=== PATIENT | female | born 1960 | race Caucasian/White ===

== ENCOUNTER 2019-08-25 09:01 | Outpatient (CLI) | payer BC, SELFPAY ==
--- NOTE | ~2019-08-25 | MM_ITS ---
EXAMINATION: MM screening [facility] BI w shemar HISTORY: Screening mammogram TECHNIQUE: Craniocaudal and mediolateral oblique 3-D tomosynthesis images were obtained and synthetic 2-D images were generated. CAD analysis was submitted and interpreted. COMPARISON: 07/16/2018, 07/09/2017, 07/07/2016 BREAST PARENCHYMAL COMPOSITION: There are scattered areas of fibroglandular density. FINDINGS: There is no evidence of suspicious mass, calcification, or architectural distortion to sugg est malignancy in either breast. There has been no suspicious interval change. IMPRESSION: 1. No mammographic evidence of malignancy. 2. Recommend routine screening mammography in one year. BI-RADS Category 1: Negative Reviewed, dictated and finalized at location A.
== END 2019-08-25 09:02 | disposition home or self-care (01) ==
LOC: ANHIMG 09:05
PROVIDERS: PCP Nurse Practitioner Adult Health; Visit Provider Nurse Practitioner Adult Health
DX: Z12.31 Encounter for screening mammogram for malignant neoplasm of breast (principal)
CPT/HCPCS: 77063; 77067

== ENCOUNTER 2020-08-28 08:58 | Outpatient (CLI) | payer BC, SELFPAY ==
--- NOTE | ~2020-08-28 | MM_ITS ---
EXAMINATION: MM screening [facility] BI w shemar HISTORY: Screening mammogram TECHNIQUE: Craniocaudal and mediolateral oblique 3-D tomosynthesis images were obtained and synthetic 2-D images were generated. CAD analysis was submitted and interpreted. COMPARISON: 08/25/2019, 07/16/2018, 07/09/2017 BREAST PARENCHYMAL COMPOSITION: There are scattered areas of fibroglandular density. FINDINGS: There is no evidence of suspicious mass, calcification, or architectural distortion to sugg est malignancy in either breast. There has been no suspicious interval change. IMPRESSION: 1. No mammographic evidence of malignancy. 2. Recommend routine screening mammography in one year. BI-RADS Category 1: Negative Reviewed, dictated and finalized at location A.
== END 2020-08-28 08:59 | disposition home or self-care (01) ==
PROVIDERS: PCP Nurse Practitioner Adult Health; Visit Provider Nurse Practitioner Adult Health
DX: Z12.31 Encounter for screening mammogram for malignant neoplasm of breast (principal)
CPT/HCPCS: 77063; 77067

== ENCOUNTER 2021-12-31 14:26 | Outpatient (CLI) | payer BC, SELFPAY ==
--- NOTE | ~2021-12-31 | MM_ITS ---
EXAMINATION: MM screening [facility] BI w [facility] HISTORY: Screening TECHNIQUE: Craniocaudal and mediolateral oblique 3-D tomosynthesis images were obtained and synthetic 2-D images were generated. CAD analysis was submitted and interpreted. COMPARISON: Comparison to multiple prior studies sequentially, with oldest reviewed study dated 07/04. BREAST PARENCHYMAL COMPOSITION: There are scattered areas of fibroglandular density. FINDINGS: There is no evidence of suspicious mass, calcification, or architectural distortion to sugg est malignancy in either breast. There has been no suspicious interval change. IMPRESSION: 1. No mammographic evidence of malignancy. 2. Recommend routine screening mammography in one year. BI-RADS Category 1: Negative Reviewed, dictated and finalized at location A. 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
== END 2021-12-31 14:27 | disposition home or self-care (01) ==
PROVIDERS: PCP Nurse Practitioner Adult Health; Visit Provider Nurse Practitioner Adult Health
DX: Z12.31 Encounter for screening mammogram for malignant neoplasm of breast (principal)
CPT/HCPCS: 77063; 77067

== ENCOUNTER → 2022-12-11 08:43 | Outpatient (CLI) | payer BC, SELFPAY ==
--- NOTE | ~2022-12-11 | US_ITS ---
EXAMINATION: US carotid duplex BI DATE: 12/11/2022 09:06 INDICATION: Carotid bruit TECHNIQUE: Grayscale, color Doppler, and pulsed Doppler images of the cervical carotid arteries were obtained. The degree of vessel stenosis is placed in one of the following categories: normal, <50%, 5 0-69%, >=70% but less than near-occlusion, near-occlusion, or total occlusion. Note that percent sten osis relative to normal distal artery lumen diameter is indirectly measured from velocity measurement s as described by Duarte, et al. Radiology 2003; [id number]:340-346. Notes: Normal: Peak systolic velocity <125 centimeters/sec and no plaque <50%. Peak systolic velocity <125 ( EDV <40; ICA/CCA PSV ratio <2.0; used these factors only a tandem lesions or low cardiac output or co ntralateral disease) 50-69 %: PSV 125-230 (EDV 40-100; ratio 2-4) >= 70% but less than near occlusion: PSV greater than 230 (EDV > 100; ratio> 4.0) Near Occlusion: PSV that is variable; markedly narrowed lumen Occlusion: Absent flow on color/spectral Doppler and no lumen on leblanc scale. COMPARISON: None. FINDINGS: RIGHT: The right common carotid artery (CCA) peak systolic velocity (PSV) is 119 cm/s. The right internal ca rotid artery (ICA) PSV is 128 cm/s. The right ICA end-diastolic velocity (EDV) is 30 cm/s. The right ICA/CCA PSV ratio is 1.8. The external carotid artery (ECA) PSV is 155 cm/s. There is antegrade flow in the right vertebral artery. LEFT: The left CCA PSV is 128 cm/s. The left ICA PSV is 100 cm/s. The left ICA EDV is 30 cm/s. The left ICA /CCA PSV ratio is 1. The ECA PSV is 132 cm/s. There is antegrade flow in the left vertebral artery. IMPRESSION: 1. Less than 50% stenosis in the right internal carotid artery by sonographic criteria. 2. Less than 50% stenosis in the left internal carotid artery by sonographic criteria. Reviewed, dictated and finalized at location L. IMPRESSION: 1. Less than 50% stenosis in the right internal carotid artery by sonographic jerry boo. 2. Less than 50% stenosis in the left internal carotid artery by sonographic jaxon howard.
== END ==
PROVIDERS: PCP Family Medicine; Visit Provider Family Medicine
DX: I65.23 Occlusion and stenosis of bilateral carotid arteries (principal)
CPT/HCPCS: 93880

== ENCOUNTER 2023-01-02 09:00 | Outpatient (CLI) | payer BC, SELFPAY ==
--- NOTE | ~2023-01-02 | MM_ITS ---
EXAMINATION: MM screening [facility] BI w shemar HISTORY: Screening mammogram TECHNIQUE: Craniocaudal and mediolateral oblique 3-D tomosynthesis images were obtained and synthetic 2-D images were generated. CAD analysis was submitted and interpreted. COMPARISON: 12/29/2021, 08/28/2020, 08/25/2019, 07/16/2018 BREAST PARENCHYMAL COMPOSITION: There are scattered areas of fibroglandular density. FINDINGS: No suspicious mass, calcification, or architectural distortion are identified in either jorge ast to suggest malignancy. There has been no suspicious interval change. IMPRESSION: 1. No mammographic evidence of malignancy. 2. Recommend routine screening mammography in one year. BI-RADS Category 1: Negative Reviewed, dictated and finalized at location A. 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
== END 2023-01-02 09:01 | disposition home or self-care (01) ==
PROVIDERS: PCP Family Medicine; Visit Provider Family Medicine
DX: Z12.31 Encounter for screening mammogram for malignant neoplasm of breast (principal)
CPT/HCPCS: 77063; 77067

== ENCOUNTER 2023-11-18 12:27 | Outpatient (CLI) | payer MEDICARE, SELFPAY ==
--- NOTE | ~2023-11-18 | US_ITS ---
EXAMINATION: US carotid duplex BI DATE: 11/18/2023 13:40 INDICATION: Unspecified atherosclerosis TECHNIQUE: Grayscale, color Doppler, and pulsed Doppler images of the cervical carotid arteries were obtained. The degree of vessel stenosis is placed in one of the following categories: normal, <50%, 5 0-69%, >=70% but less than near-occlusion, near-occlusion, or total occlusion. Note that percent sten osis relative to normal distal artery lumen diameter is indirectly measured from velocity measurement s as described by Duarte, et al. Radiology 2003; [id number]. COMPARISON: None. FINDINGS: RIGHT: The right common carotid artery (CCA) peak systolic velocity (PSV) is 109 cm/s. The right internal ca rotid artery (ICA) PSV is 97 cm/s. The right ICA end-diastolic velocity (EDV) is 25 cm/s. The right I CA/CCA PSV ratio is 0.9. Grayscale and color Doppler images yield an estimate of <50% diameter reduct ion from plaque in the ICA. The external carotid artery (ECA) PSV is 129 cm/s. There is antegrade jame w in the right vertebral artery. LEFT: The left CCA PSV is 126 cm/s. The left ICA PSV is 86 cm/s. The left ICA EDV is 25 cm/s. The left ICA/ CCA PSV ratio is 0.7. Grayscale and color Doppler images yield an estimate of <50% diameter reduction from plaque in the ICA. The ECA PSV is 132 cm/s. There is antegrade flow in the left vertebral arter y. IMPRESSION: 1. <50% stenosis in the right internal carotid artery. 2. <50% stenosis in the left internal carotid artery. Reviewed, dictated and finalized at location A.
--- NOTE | ~2023-11-18 | US_ITS ---
EXAMINATION: US thyroid DATE: 11/18/2023 13:41 INDICATION: Disorder of thyroid, unspecified. TECHNIQUE: Multiple ultrasound images of the thyroid were obtained. COMPARISON: Ultrasound 06/17/2016 FINDINGS: The right thyroid lobe measures 4.0 x 2.0 x 2.1 cm. The left thyroid lobe measures 3.9 x 1.4 x 1.5 c m. In the left thyroid lobe, there is a 4 mm nodule. In the right thyroid lobe, there is a 12 mm mix ed cystic and solid, isoechoic, wider than tall nodule with ill-defined margin without echogenic foci (TI-RADS TR2). IMPRESSION: 1. Thyroid nodules, likely not clinically significant. No follow-up is needed. Reviewed, dictated and finalized at location A.
== END 2023-11-18 12:28 | disposition home or self-care (01) ==
LOC: ANHIMG 12:33
PROVIDERS: PCP Nurse Practitioner Adult Health; Visit Provider Nurse Practitioner Adult Health
DX: I70.90 Unspecified atherosclerosis (principal); R09.89 Other specified symptoms and signs involving the circulatory and respiratory systems; E07.9 Disorder of thyroid, unspecified; E04.2 Nontoxic multinodular goiter; I65.23 Occlusion and stenosis of bilateral carotid arteries
CPT/HCPCS: 76536; 93880

== ENCOUNTER 2024-11-17 10:26 | Outpatient (CLI) | payer MEDICARE, SELFPAY ==
--- NOTE | ~2024-11-17 | US_ITS ---
EXAMINATION: US carotid duplex BI DATE: 11/17/2024 16:48 INDICATION: Left carotid bruit TECHNIQUE: Grayscale, color Doppler, and pulsed Doppler images of the cervical carotid arteries were obtained. The degree of vessel stenosis is placed in one of the following categories: normal, <50%, 50-69%, >=70% but less than near- occlusion, near-occlusion, or total occlusion. Note that percent stenosis relative to normal distal artery lumen diameter is indirectly measured from velocity measurements as described by Duarte, et al. Radiology 2003; 229:340-346. COMPARISON: None. FINDINGS: RIGHT: The right common carotid artery (CCA) peak systolic velocity (PSV) is 147 cm/s. The right internal carotid artery (ICA) PSV is 142 cm/s. The right ICA end- diastolic velocity (EDV) is 30 cm/s. The right ICA/CCA PSV ratio is 1.0. Grayscale and color Doppler images yield an estimate of <50% diameter reduction from plaque in the ICA. The external carotid artery (ECA) PSV is 143 cm/s. There is antegrade flow in the right vertebral artery. LEFT: The left CCA PSV is 124 cm/s. The left ICA PSV is 118 cm/s. The left ICA EDV is 31 cm/s. The left ICA/CCA PSV ratio is 1.0. Grayscale and color Doppler images yield an estimate of <50% diameter reduction from plaque in the ICA. The ECA PSV is 156 cm/s. There is antegrade flow in the left vertebral artery. IMPRESSION: 1. 50-69% stenosis in the right internal carotid artery. 2. <50% stenosis in the left internal carotid artery. Reviewed, dictated and finalized at location A.
--- OUTSIDE RECORDS SUMMARY | 2024-11-17 16:16 | XMS_ITS | Data Portability ---
Author Organization [place] [facility] [employer], Main Office Address [address] [place] [address] Assessment No assessment recorded. Plan of Treatment Reminders Order Date Submit Date Provider Last Modified By Organization Details Last Modified Time Details Appointments None recorded. Lab pap, IG + reflex HPV (16+18+45) 2022 023 LAQUITA Not available 02:17:36 lipid panel, serum 2022 023 [email or web address] [facility], [address], [address], [place], [address], 11:43:01 CMP, serum or plasma 2022 023 [facility], [address], [place], [address], 11:43:02 Referral None recorded. Procedures None recorded. Surgeries None recorded. Imaging MAMMO, screening, bilateral 2022 023 [email or web address] [id number] [facility], 2022 Alise [address], [address], [place], [address], 09:20:43 [facility], duplex, [facility] [address], [address], [place], [address], 10:18:47 Medication Orders None recorded. Patient TargetsNo targets recorded. Patient InstructionsNo instructions recorded. Reason for Referral None Reported. Results Created Date Observation Date Name Description Value Unit Range Abnormal Flag Note LastModifiedBy Organization Detail LastModifiedTime 11/07/19 22 11/06/2021 AMBIG ABBRE V HFP7 DEFAU LT ambig abbrev hfp7 default commen t A hand- writt en panel /prof ile was recei natasha from your offic e. In accor dance with the [facility] Ambig uous Test Code Polic y dated August 2002, we have compl eted your order by using the close st curre ntly or forme rly recog nized AMA panel . We have selin walsh Hepat ic Funct ion Panel (7), Test Code #32[address]. If this is not the testi ng you wishe d to recei ve on this speci men, pleas e conta ct the [facility] Clien t Inqui ry/Te chnic al Servi paulina Depar tment to tonya fy the test order . We appre ciate your busin ess. Not Available [facility] ([facility]) [address] [facility], [place], [address], 11/07/2021 08:20:55 11/07/19 22 11/06/2021 AMBIG ABBRE V LP DEFAU LT ambig abbrev LP default commen t A hand- writt en panel /prof ile was recei natasha from your offic e. In accor dance with the [facility] Ambig uous Test Code Polic y dated August 2002, we have compl eted your order by using the close st curre ntly or forme rly recog nized AMA panel . We have selin walsh Lipid Panel , Test Code #30[address]. If this is not the testi ng you wishe d to recei ve on this speci men, pleas e conta ct the [facility] Clien t Inqui ry/Te chnic al Servi paulina Depar tment to tonya fy the test order . We appre ciate your busin ess. Not Available [facility] ([facility]) [address] [facility], [place], [address], 11/07/2021 08:20:54 11/07/19 22 11/06/2021 AMBIG ABBRE V BMP8 DEFAU LT ambig abbrev BMP8 default commen t A hand- writt en panel /prof stewart was recei natasha from your offic e. In accor dance with the [facility] Wendy bullardous Test Code Polic y dated August 2002, we have compl eted your order by using the close st curre ntly or forme rly recog nized AMA panel . We have assdrarius walsh Basic Metab olic Panel (8), Test Code #32[address]. If this is not the testi ng you wishe d to recei ve on this speci men, pleas e conta ct the [facility] Clien t Inqui ry/Te chnic al Servi paulina Depar tment to tonya fy the test order . We appre ciate your busin ess. Not Available [facility] ([facility]) [address] [place], [address], 11/07/2021 08:20:54 11/07/19 22 11/07/2021 TSH TSH 1.390 uIU/m L 0.450- 4.500 Not Available [facility] ([facility]) [address] [place], [address], 11/07/2021 08:20:53 11/07/19 22 11/07/2021 HEPAT IC FUNCT ION PANEL (7) protein, total 7.4 g/dL 6.0-8. 5 Not Available [facility] ([facility]) [address] [place], [address], 11/07/2021 08:20:52 11/07/19 22 11/07/2021 HEPAT IC FUNCT ION PANEL (7) albumin 4.9 g/dL 3.8-4. 8 above high normal Not Available [facility] ([facility]) [address] [place], [address], 11/07/2021 08:20:52 11/07/1911/07/2021 HEPAT IC FUNCT ION PANEL (7) bilirubin, total 0.6 mg/dL 0.0-1. 2 Not Available [facility] ([facility]) [address] [place], [address], 11/07/2021 08:20:52 11/07/19 22 11/07/2021 HEPAT IC FUNCT ION PANEL (7) bilirubin, direct 0.12 mg/dL 0.00-0 .40 Not Available [facility] ([facility]) [address] [place], [address], 11/07/2021 08:20:52 11/07/19 22 11/07/2021 HEPAT IC FUNCT ION PANEL (7) alkaline phosphatase 79 IU/L 44-121 Not Available [facility] ([facility]) [address] [place], [address], 11/07/2021 08:20:52 11/07/19 22 11/07/2021 HEPAT IC FUNCT ION PANEL (7) AST (SGOT) 26 IU/L 0-40 Not Available [facility] ([facility]) [address] [place], [address], 11/07/2021 08:20:52 11/07/19 22 11/07/2021 HEPAT IC FUNCT ION PANEL (7) ALT (SGPT) 15 IU/L 0-32 Not Available [facility] ([facility]) [address] [place], [address], 11/07/2021 08:20:52 11/07/19 22 11/07/2021 LIPID PANEL cholesterol, total 233 mg/dL 100-19 9 above high normal Not Available [facility] ([facility]) [address] [place], [address], 11/07/2021 08:20:51 11/07/19 22 11/07/2021 LIPID PANEL triglyceride s 198 mg/dL 0-149 above high normal Not Available [facility] ([facility]) [address] [place] [place], [address], 11/07/2021 08:20:51 11/07/19 22 11/07/2021 LIPID PANEL HDL cholesterol 39 mg/dL >39 below low normal Not Available [facility] ([facility]) [address] [place] [place], [address], 11/07/2021 08:20:51 11/07/19 22 11/07/2021 LIPID PANEL VLDL cholesterol jensen 36 mg/dL 5-40 Not Available [facility] ([facility]) [address] [place], [address], 11/07/2021 08:20:51 11/07/19 22 11/07/2021 LIPID PANEL LDL chol calc ([facility]) 158 mg/dL 0-99 above high normal Not Available [facility] ([facility]) [address] [place], [address], 11/07/2021 08:20:51 11/07/19 22 11/07/2021 LIPID PANEL comment: psych arnp Not Available [facility] ([facility]) [address] [place], [address], 11/07/2021 08:20:51 11/07/19 22 11/07/2021 BASIC METAB OLIC PANEL (8) glucose 81 mg/dL 65-99 Eff ectiv e Septe mber 2021 Gluco se refer ence* * inter edelmira will be corona ing to: 70 - 99 Not Available [facility] ([facility]) [address] [place], [address], 11/07/2021 08:20:50 11/07/19 22 11/07/2021 BASIC METAB OLIC PANEL (8) BUN 16 mg/dL 8-27 Not Available [facility] ([facility]) [address] [place], [address], 11/07/2021 08:20:50 11/07/19 22 11/07/2021 BASIC METAB OLIC PANEL (8) creatinine 0.90 mg/dL 0.57-1 .00 Not Available [facility] ([facility]) [address] [place], [address], 11/07/2021 08:20:50 11/07/19 22 11/07/2021 BASIC METAB OLIC PANEL (8) eGFR 72 mL/mi n/1.7 3 >59 Not Available [facility] ([facility]) [address] [place], [address], 11/07/2021 08:20:50 11/07/19 22 11/07/2021 BASIC METAB OLIC PANEL (8) BUN/creatini ne ratio 18 12-28 Not Available [facility] ([facility]) [address] [place], [address], 11/07/2021 08:20:50 11/07/19 22 11/07/2021 BASIC METAB OLIC PANEL (8) sodium 138 mmol/ L 134-14 4 Not Available [facility] ([facility]) [address] [place], [address], 11/07/2021 08:20:50 11/07/19 22 11/07/2021 BASIC METAB OLIC PANEL (8) potassium 4.7 mmol/ L 3.5-5. 2 Not Available [facility] ([facility]) [address] [place], [address], 11/07/2021 08:20:50 11/07/19 22 11/07/2021 BASIC METAB OLIC PANEL (8) chloride 97 mmol/ L 96-106 Not Available [facility] ([facility]) [address] [place], [address], 11/07/2021 08:20:50 11/07/19 22 11/07/2021 BASIC METAB OLIC PANEL (8) carbon dioxide, total 21 mmol/ L 20-29 Not Available [facility] ([facility]) [address] [facility], [place], [address], 11/07/2021 08:20:50 11/07/1911/07/2021 BASIC METAB OLIC PANEL (8) calcium 9.7 mg/dL 8.7-10 .3 Not Available [facility] ([facility]) [address] [facility], [place], [address], 11/07/2021 08:20:50 12/09/1912/14/2022 PAP THINP REP W/HPV ,RF 16/18 /45 diagnosis: Orlando FRITZ FOR INTRA EPITH ELIAL LESIO N OR MIGUEL BHAKTA . CELLU MICHEAL CORONA ES ASSOC IATED WITH INFLA MMATI ON ARE PRESE NT. THIS SPECI MEN WAS RESCR EENED PART OF OUR QUALI TY CONTR OL PROGR AM. Not Available [facility] (Lab) [address] [place], [address], 12/14/2022 11:09:40 12/09/1912/14/2022 PAP THINP REP W/HPV ,RF 16/18 /45 specimen adequacy: Orlando Caban Satis mandy mcdonough for evalu ation . Endoc ervic al and/o r squam ous m etapl astic cells (endo cervi jensen compo nent) are prese nt. Not Available [facility] (Lab) [address] [place], [address], 12/14/2022 11:09:40 12/09/1912/14/2022 PAP THINP REP W/HPV ,RF 16/18 /45 performed by: Valeriano Damico (ASCP ) Not Available [facility] (Lab) [address] [place], [address], 12/14/2022 11:09:40 12/09/1912/14/2022 PAP THINP REP W/HPV ,RF 16/18 /45 QC reviewed by: Orlando Coppola , Cytot delaney trammell Not Available [facility] (Lab) [address] [place], [address], 12/14/2022 11:09:40 12/09/1912/14/2022 PAP THINP REP W/HPV ,RF 16/18 /45 . . Not Available [facility] (Lab) [address] [place], [address], 12/14/2022 11:09:40 12/09/1912/14/2022 PAP THINP REP W/HPV ,RF 16/18 /45 note: Orlando trammell The Pap smear is a scree ludmila test desig jillian to aid in the detec tion of vikas ligna nt and malig nant condi tions of the uteri ne cervi x. It is not a diagn ostic proce dure and shoul d not be used as the sole means of detec ting cervi jensen cance r. Both false -posi tive and false -nega tive repor ts do occur . . Not Available [facility] (Lab) [address] [place], [address], 12/14/2022 11:09:40 12/09/1912/14/2022 PAP THINP REP W/HPV ,RF 16/18 /45 test methodology: Orlando trammell This liqui d based ThinP rep(R ) pap test was scree jillian with the use of an image guide d syste m. Not Available [facility] (Lab) [address] [place], [address], 12/14/2022 11:09:40 12/09/1912/14/2022 PAP THINP REP W/HPV ,RF 16/18 /45 aptima HPV, reflex Orlando trammell This nucle ic acid ampli ficat ion test detec ts fourt een high- risk HPV types (16,1 8,31, 33,35 ,39,4 5,51, 52,56 ,58,5 9,66, 68) witho ut diffe renti ation . Crite yfn not met, HPV Genot ype not perfo rmed. Perfo rmed at: [facility] [place] [address] , [place] [id number] Lab Direc tor: Jv friedman MD, Phone : [phone] Perfo rmed at: =[facility] - [facility] [place] [address] , [place] [id number] Lab Direc tor: Jv friedman MD, Phone : [phone] Not Available [facility] (Lab) [address] [place], [address], 12/14/2022 11:09:40 01/02/20 23 01/02/2023 COMP. METAB OLIC PANEL (14) glucose 85 mg/dL 70-99 Not Available [facility] ([facility]) [address] [place], [address], 01/02/2023 03:08:09 01/02/20 23 01/02/2023 COMP. METAB OLIC PANEL (14) BUN 7 mg/dL 8-27 below low normal Not Available [facility] ([facility]) [address] [place], [address], 01/02/2023 03:08:09 01/02/20 23 01/02/2023 COMP. METAB OLIC PANEL (14) creatinine 0.83 mg/dL 0.57-1 .00 Not Available [facility] ([facility]) [address] [place], [address], 01/02/2023 03:08:09 01/02/20 23 01/02/2023 COMP. METAB OLIC PANEL (14) eGFR 79 mL/mi n/1.7 3 >59 Not Available [facility] ([facility]) [address] [place], [address], 01/02/2023 03:08:09 01/02/20 23 01/02/2023 COMP. METAB OLIC PANEL (14) BUN/creatini ne ratio 8 12-28 below low normal Not Available [facility] ([facility]) [address] [place], [address], 01/02/2023 03:08:09 01/02/20 23 01/02/2023 COMP. METAB OLIC PANEL (14) sodium 134 mmol/ L 134-14 4 Not Available [facility] ([facility]) [address] [place] [place], [address], 01/02/2023 03:08:09 01/02/20 23 01/02/2023 COMP. METAB OLIC PANEL (14) potassium 4.4 mmol/ L 3.5-5. 2 Not Available [facility] ([facility]) [address] [place], [address], 01/02/2023 03:08:09 01/02/20 23 01/02/2023 COMP. METAB OLIC PANEL (14) chloride 93 mmol/ L 96-106 below low normal Not Available [facility] ([facility]) [address] [place], [address], 01/02/2023 03:08:09 01/02/20 23 01/02/2023 COMP. METAB OLIC PANEL (14) carbon dioxide, total 24 mmol/ L 20-29 Not Available [facility] ([facility]) [address] [place], [address], 01/02/2023 03:08:09 01/02/20 23 01/02/2023 COMP. METAB OLIC PANEL (14) calcium 9.6 mg/dL 8.7-10 .3 Not Available [facility] ([facility]) [address] [place], [address], 01/02/2023 03:08:09 01/02/20 23 01/02/2023 COMP. METAB OLIC PANEL (14) protein, total 7.2 g/dL 6.0-8. 5 Not Available [facility] ([facility]) [address] [place], [address], 01/02/2023 03:08:09 01/02/20 23 01/02/2023 COMP. METAB OLIC PANEL (14) albumin 4.8 g/dL 3.9-4. 9 Not Available [facility] ([facility]) [address] [place], [address], 01/02/2023 03:08:09 01/02/20 23 01/02/2023 COMP. METAB OLIC PANEL (14) globulin, total 2.4 g/dL 1.5-4. 5 Not Available [facility] ([facility]) [address], [place], [address], 01/02/2023 03:08:09 01/02/20 23 01/02/2023 COMP. METAB OLIC PANEL (14) A/G ratio 2.0 1.2-2. 2 Not Available [facility] ([facility]) [address] [place], [address], 01/02/2023 03:08:09 01/02/20 23 01/02/2023 COMP. METAB OLIC PANEL (14) bilirubin, total 0.6 mg/dL 0.0-1. 2 Not Available [facility] ([facility]) [address] [place], [address], 01/02/2023 03:08:09 01/02/20 23 01/02/2023 COMP. METAB OLIC PANEL (14) alkaline phosphatase 83 IU/L 44-121 Not Available [facility] ([facility]) [address] [place], [address], 01/02/2023 03:08:09 01/02/20 23 01/02/2023 COMP. METAB OLIC PANEL (14) AST (SGOT) 25 IU/L 0-40 Not Available [facility] ([facility]) [address] [facility], [place], [address], 01/02/2023 03:08:09 01/02/20 23 01/02/2023 COMP. METAB OLIC PANEL (14) ALT (SGPT) 14 IU/L 0-32 Not Available [facility] ([facility]) [address] [facility], [place], [address], 01/02/2023 03:08:09 01/02/20 23 01/02/2023 LIPID PANEL cholesterol, total 177 mg/dL 100-19 9 Not Available [facility] ([facility]) [address] [facility], [place], [address], 01/02/2023 03:08:10 01/02/20 23 01/02/2023 LIPID PANEL triglyceride s 99 mg/dL 0-149 Not Available [facility] ([facility]) [address] [place], [address], 01/02/2023 03:08:10 01/02/20 23 01/02/2023 LIPID PANEL HDL cholesterol 48 mg/dL >39 Not Available [facility] ([facility]) [address] [facility], [place], [address], 01/02/2023 03:08:10 01/02/20 23 01/02/2023 LIPID PANEL VLDL cholesterol jensen 18 mg/dL 5-40 Not Available [facility] ([facility]) [address] [place], [address], 01/02/2023 03:08:10 01/02/20 23 01/02/2023 LIPID PANEL LDL chol calc ([facility]) 111 mg/dL 0-99 above high normal Not Available [facility] ([facility]) [address] [place], [address], 01/02/2023 03:08:10 01/02/20 23 01/02/2023 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 Not Available [facility] ([facility]) [address], [place], [address], 01/02/2023 03:08:10 01/30/20 23 01/30/2023 COMPR EHENS LAM METAB OLIC PANEL glucose 73 mg/dL 65-139 normal Non-f astin g refer ence inter edelmira Not Available [address] [address] [place], [address], 01/30/2023 04:26:26 01/30/20 23 01/30/2023 COMPR EHENS LAM METAB OLIC PANEL urea nitrogen (BUN) 11 mg/dL 7-25 normal Not Available [address], [address], 01/30/2023 04:26:26 01/30/20 23 01/30/2023 COMPR EHENS LAM METAB OLIC PANEL creatinine 0.78 mg/dL 0.50-1 .05 normal Not Available [address] [address] [place], [address], 01/30/2023 04:26:26 01/30/20 23 01/30/2023 COMPR EHENS LAM METAB OLIC PANEL eGFR 85 mL/mi n/1.7 3m2 > or = 60 normal Not Available [address], [address], 01/30/2023 04:26:26 01/30/20 23 01/30/2023 COMPR EHENS LAM METAB OLIC PANEL BUN/creatini ne ratio SEE NOTE: (calc ) 6-22 Not Repor brinda: BUN and Creat inine are withi n refer ence range . Not Available [address], [address], 01/30/2023 04:26:26 01/30/20 23 01/30/2023 COMPR EHENS LAM METAB OLIC PANEL sodium 138 mmol/ L 135-14 6 normal Not Available [facility] - [address], [address], 01/30/2023 04:26:26 01/30/20 23 01/30/2023 COMPR EHENS LAM METAB OLIC PANEL potassium 4.2 mmol/ L 3.5-5. 3 normal Not Available [address], [address], 01/30/2023 04:26:26 01/30/20 23 01/30/2023 COMPR EHENS LAM METAB OLIC PANEL chloride 99 mmol/ L 98-110 normal Not Available [address], [address], 01/30/2023 04:26:26 01/30/20 23 01/30/2023 COMPR EHENS LAM METAB OLIC PANEL carbon dioxide 30 mmol/ L 20-32 normal Not Available [address], [address], 01/30/2023 04:26:26 01/30/20 23 01/30/2023 COMPR EHENS LAM METAB OLIC PANEL calcium 9.5 mg/dL 8.6-10 .4 normal Not Available [address], [address], 01/30/2023 04:26:26 01/30/20 23 01/30/2023 COMPR EHENS LAM METAB OLIC PANEL protein, total 7.0 g/dL 6.1-8. 1 normal Not Available [address], [address], 01/30/2023 04:26:26 01/30/20 23 01/30/2023 COMPR EHENS LAM METAB OLIC PANEL albumin 4.7 g/dL 3.6-5. 1 normal Not Available [address], [address], 01/30/2023 04:26:26 01/30/20 23 01/30/2023 COMPR EHENS LAM METAB OLIC PANEL globulin 2.3 g/dL_ (calc ) 1.9-3. 7 normal Not Available [address], [address], 01/30/2023 04:26:26 01/30/20 23 01/30/2023 COMPR EHENS LAM METAB OLIC PANEL albumin/glob ulin ratio 2.0 (calc ) 1.0-2. 5 normal Not Available [address], [address], 01/30/2023 04:26:26 01/30/20 23 01/30/2023 COMPR EHENS LAM METAB OLIC PANEL bilirubin, total 0.5 mg/dL 0.2-1. 2 normal Not Available [address], [address], 01/30/2023 04:26:26 01/30/20 23 01/30/2023 COMPR EHENS LAM METAB OLIC PANEL alkaline phosphatase 77 U/L 37-153 normal Not Available [address], [address], 01/30/2023 04:26:26 01/30/20 23 01/30/2023 COMPR EHENS LAM METAB OLIC PANEL AST 21 U/L 10-35 normal Not Available [address], [address], 01/30/2023 04:26:26 01/30/20 23 01/30/2023 COMPR EHENS LAM METAB OLIC PANEL ALT 15 U/L 6-29 normal Not Available [address], [address], 01/30/2023 04:26:26 01/01/20 22 12/31/2021 MAMMO , sarai keys, digit al, bilat eral No observ ation record ed. [id number] [place] [address] [address], [place], [address], 04/16/2022 07:36:47 01/02/20 22 12/31/2021 MAMMO , scree ludmila, digit al, bilat eral No observ ation record ed. [id number] [facility] [address] [facility] [address], [place], [address], 04/16/2022 07:36:47 12/12/19 23 12/11/2022 US, carlle x, carot id arter y No observ ation record ed. [email or web address] [place] [facility] [address] [facility] [address], [place], [address], 12/11/2022 12:55:29 01/03/20 23 01/02/2023 MAMMO , scree ludmila, bilat eral No observ ation record ed. [email or web address] [address], [place], [address], 01/05/2023 16:34:05 Result Notes None recorded. Problems Name Problem SNOMED Code Status Onset Date Resolution Date Notes Provider Name and Address Organization Details Recorded Time Acute sinusitis 83071891 Completed Not Available [facility] 3 07:31:27 Thyroid nodule 344083351 Active Not Available [facility] 3 07:31:27 Hypertrigl yceridemia 021797301 Active Not Available [facility] 3 07:31:27 Hypertensi ve disorder 82021611 Active Not Available [facility] 3 07:31:27 Hyperlipid emia 95804907 Active Not Available [facility] 3 07:31:27 Essential hypertensi on 32819821 Active Not Available [facility] 3 07:31:27 Posterior rhinorrhea 65844222 Active Not Available [facility] 3 07:31:27 Carotid bruit 834954004 Active 2022 Samna Landry MD [address] [place], [place] [address]idal[place], [facility] [address], [place], [address] , [facility] 3 11:11:47 [email or web address] 20575439 Active 2022 Jonny Pina RN null, [facility] 3 10:21:34 Problem Notes None recorded. Procedures Surgical History Date Name Laterality Status Provider Name and Address Organization Details Recorded Time Removal of ovarian cyst(s) completed Not Available [facility] 04/16/2022 07:26:55 Colonoscopy completed Not Available [facility] 04/16/2022 07:26:55 Imaging Results None recorded. Procedure Notes None recorded. Medical Equipment None Reported. Allergies No known drug allergies Medications Name Sig Start Date Stop Date Status Note LastModified by Organization Details LastModified Time Prescriptio n - Renewal active Not Available Not Available Not Available amoxicillin 875 mg tablet TAKE 1 TABLET BY MOUTH NOW THEN 1 TWICE DAILY UNTIL GONE 12/08 completed Not Available Not Available Not Available lisinopril 10 mg tablet Take 1 tablet by mouth once daily 2023 active Not Available Not Available Not Avai lable methylpredn isolone 4 mg tablets in a dose pack FOLLOW PACKAGE DIRECTION S 12/05 completed Not Available Not Available Not Available amoxicillin 875 mg-potassiu m clavulanate 125 mg tablet TAKE 1 TABLET BY MOUTH NOW AND 1 TWICE DAILY UNTIL GONE 11/01 completed Not Available Not Available Not Available ezetimibe 10 mg tablet TAKE 1 TABLET BY MOUTH ONCE DAILY 2023 active Not Available Not Available Not Avai lable Boostrix Tdap 2.5 Lf unit-8 mcg-5 Lf/0.5 mL intramuscul ar syringe ADM 0.5ML IM UTD 11/01 completed Not Available Not Available Not Available Livalo 2 mg tablet Take 1 tablet every day by oral route for 30 days. 01/28 completed Not Available Not Available Not Available Vascepa 1 gram capsule Take 2 capsules twice a day by oral route as directed for 30 days. 11/01 completed Not Available Not Available Not Available Fluvirin 6133-2954 45 mcg (15 mcg x 3)/0.5 mL intramuscul ar suspension active Not Available Not Available N ot Available Fluvirin (P F) 45 mcg (15 mcg x3)/0.5 mL intramuscul ar syringe 01/04 completed Not Available Not Available Not Available Afluria 8813-6699 (PF) 45 mcg (15 mcg x 3)/0.5 mL IM syringe active Not Available Not Available N ot Available Fluvirin 9790-5218 45 mcg (15 mcg x 3)/0.5 mL intramuscul ar suspension ADM 0.5ML IM UTD active Not Available Not Available No t Available Fluvirin (PF) 45 mcg(15 mcg x3)/0.5 mL intramuscul ar syringe ADM 0.5ML IM UTD 11/01 completed Not Available Not Available Not Available Shingrix (PF) 50 mcg/0.5 mL intramuscul ar suspension, kit 11/01 completed Not Available Not Available Not Available Flucelvax Quad (PF) 60 mcg (15 mcg x 4)/0.5 mL IM syringe active Not Available Not Available N ot Available Vitals Date Recorded Oxygen saturation Oxygen saturation in Arterial blood by Pulse oximetry Heart rate Body temperature Body weight Systolic And Diastolic Provider Name and Address Organization Details Last Updated DateTime 1 99 % 99 % 95 /min 97.2 [degF] 74939.6 g 124/80 mm[Hg] Not Available [facility] 3 07:30:31 Date Recorded Oxygen saturation Oxygen saturation in Arterial blood by Pulse oximetry Heart rate Body temperature Body weight Systolic And Diastolic Provider Name and Address Organization Details Last Updated DateTime 2 99 % 99 % 70 /min 96.8 [degF] 42914.2 3 g 126/82 mm[Hg] Not Available [facility] 3 07:30:31 Date Recorded Body mass index (BMI) Body height Provider Name and Address Organization Details Last Updated DateTime 12/08/2022 22 kg/m2 160.02 cm Saman Landry MD [address], [facility] [address], [place], [address], [place] [facility] [employer] [facility] 12/08/2022 13:31:06 Date Recorded Body weight Body temperature Heart rate Oxygen saturation Oxygen saturation in Arterial blood by Pulse oximetry Systolic And Diastolic Provider Name and Address Organization Details Last Updated DateTime 3 80287.4 5 g 96.9 [degF] 77 /min 95 % 95 % 132/72 mm[Hg] Yris kelly, AB[facility] [place] [facility] 10:56:37 Social History Question Answer Notes LastModified by Organizat ion Details LastModified Time Tobacco Smoking Status Never Smoker Not Available [facility] 04/16/2022 07:26:50 What Is Your Level Of Caffeine Consumption? Moderate [id number] Information not available 04/16/2022 What Is Your Relationship Status? [id number] Information not available 04/16/2022 Are You Currently In School? No [id number] Information not available 04/16/2022 Sex: Unknown Functional Status Question Answer Note LastModified by Organizat ion Details LastModified Time Do you use any illicit or recreational drugs? No [id number] Information not available 04/16/2022 Do you or have you ever used any other forms of tobacco or nicotine? No [id number] Information not available 04/16/2022 What is your level of alcohol consumption? 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 Family History Relationship Description Onset Age of this Age Resolved Age Notes LastModified by Organization Details LastModified Time Mother Hypertensive disorder [id number] Not available 04/16/2022 07:26:57 Mother Coronary artery bypass graft x3 [id number] Not available 04/16/2022 07:26:57 Brother Cardiopulmon starr bypass operation [id number] Not available 04/16/2022 07:26:57 Medical History Condition Response BRONCHITIS Y ALLERGIES/HAYFEVER Y PNEUMONIA Y ANEMIA/BLOOD DISORDER Y HYPERTENSION Y HIGH CHOLESTEROL / HYPERLIPIDEMIA Y Gynecological HistoryNo gynecological history recorded. Obstetrics History GPAL:G 0 P 0 0 0 0 Immunizations Vaccine Type Date Status Note Provider Nam e and Address Organization Details Recorded Time COVID-19, mRNA, LNP-S, bivalent, PF, 50 mcg/0.5 mL or 25mcg/0.25 mL dose 2 completed Not Available [facility] 04/16/2022 07:36:31 COVID-19, mRNA, LNP-S, PF, 100 mcg/0.5mL dose or 50 mcg/0.25mL dose 1 completed Not Available [facility] 04/16/2022 07:36:32 Influenza, split virus, quadrivalent, preservative 0 completed Not Available [facility] 04/16/2022 07:36:32 Influenza, split virus, quadrivalent, preservative 9 completed Not Available [facility] 04/16/2022 07:36:32 Influenza, split virus, quadrivalent, preservative 7 completed Not Available [facility] 04/16/2022 07:36:32 Tdap 7 completed Not Available [facility] 04/16/2022 07:36:32 Influenza, split virus, trivalent, preservative 6 completed Not Available [facility] 04/16/2022 07:36:32 Influenza, split virus, trivalent, preservative 5 completed Not Available [facility] 04/16/2022 07:36:32 Influenza, split virus, trivalent, preservative 4 completed Not Available [facility] 04/16/2022 07:36:32 Influenza, split virus, trivalent, preservative 3 completed Not Available [facility] 04/16/2022 07:36:32 Tdap 0 completed Not Available [facility] 04/16/2022 07:36:32 Influenza, split virus, quadrivalent, PF 2 completed Not Available [facility] 04/16/2022 07:36:33 Influenza, split virus, quadrivalent, PF 1 completed Not Available [facility] 04/16/2022 07:36:33 Past Encounters Encounter ID Performer Location Encounter Start Date Encounter Closed Date Diagnosis/Indication Diagnosis SNOMED-CT Code Diagnosis ICD10 Code Diagnosis IMO Codes Diagnosis Note [id number] Saman Landry MD [facility] [place] [address] [place] [address] 11/08/2020 00:00:00 11/08/2020 12:47:11 [id number] Saman Landry MD [facility] [place] [address] [place] [address] 12/05/2021 00:00:00 12/05/2021 12:00:12 [id number] Saman Landry MD [facility] [place] [address] [place] [address] 12/08/2022 10:41:56 12/08/2022 11:22:21 Gynecologic examination 12035028 Z01.419 Carotid bruit 344349944 R09.89 Screening for malignant neoplasm of breast 870113434 Z12.39 Hyperlipidemia 38946342 E78.5 Health Concerns Section Related Observation LastModified by Organization Detai ls LastModified Time None Recorded Concern Status LastModified by Organization Details LastModified Time None Recorded Advance Directives Directive None Recorded Payers Insurance Date Sequence Insurance Name Policy Number Policy Pappas Covered Member ID Pappas Member ID Guarantor Name 08/24/2023 1 [place] Beverley Modi [id number] Beverley Modi 08/24/2023 1 [place] [id number] Beverley Modi [id number] Beverley Modi Notes Date Note Type Note Provider Name and Address Organization Details Recorded Time 12/08/2022 text/html Here today for a wwe . Has a hx of BP. Last pap was 2019. No hx of abnormal pap.No fmhx of female cancer. No issues or complaints today. Is UTD with colon cancer screening. Has high cholesterol. Needs mammogram. Does it at [facility]. Saman Landry MD [address] [facility] [address], [place], [address], [facility] [employer] [facility] 12/08/2022 13:34:30 OBGyn Episode No OBEpisode recorded.
--- OUTSIDE RECORDS SUMMARY | 2024-12-09 10:48 | XMS_ITS | Clinical Summary ---
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 Gender Identity Not on file Sexual Orientation Not on file Plan of Treatment Health Maintenance Due Date Last Done Comments Colon Cancer Screening-Colonoscopy 1960 Depression Screening 1960 Fall Risk Assessment 1960 Hepatitis C Screening 1960 Osteoporosis Screening-Bone Density Scan 1960 Hepatitis B Screening 02/02/1976 Pneumococcal vaccine 65+ (1 of 1 - PCV) 02/02/2008 Well Visit 65+ 2023 Covid-19 Vaccine (5 - 2024-2 6 season) 2024 01/30/2022, 01/28/2021, 05/02/2020, Additional history exists Influenza Vaccine (#1) 2024 , 12/03/2022, 12/05/2021, Additional history exists Breast Cancer Screening-Mammogram 03/08/2025 025 DTaP/Tdap/Td Vaccine (4 - Td or Tdap) 12/08/2026 12/08/2016, 11/16/2016, 02/16/2009 Zoster Vaccine Completed 04/25/2019, 12/14/2018 Procedures Procedure Name Priority Date/Time Associated Diagnosis Comments SCREENING MAMMOGRAM BILATERAL W WILL Schedule Routine, Read Routine (OP Routine) 03/08/2024 10:55 AM MACHINE PAN GREASER Screening mammogram, encounter for from Last 3 Months or Most Recently Relevant to Health Maintenance Results * Screening Mammogram Bilateral W Will (03/08/2024 10:55 AM MACHINE PAN GREASER) Anatomical Region Laterality Modality Breast Bilateral Mammography Narrative 03/21/2024 4:52 PM MACHINE PAN GREASER Mammogram Technique: Bilateral Digital Breast Tomosynthesis, Bilateral C-view 2D Screening mammogram. Views obtained: bilateral craniocaudal and bilateral mediolateral oblique. Computer Aided Detection was performed. Mammogram Findings: The present examination has been compared to prior imaging studies performed at [facility] on 12/31/2021 and 01/02/2023. There are scattered areas of fibroglandular density. There is no suspicious abnormality in either breast. There are no significant changes from the prior study. Impression: There is no mammographic evidence of malignancy. Annual screening mammography is recommended. OVERALL FINAL ASSESSMENT: BI-RADS CATEGORY 1: Negative. Procedure Note Antwan Garrison MD - 03/21/2024 Mammogram Technique: Bilateral Digital Breast Tomosynthesis, Bilateral C-view 2D Screening mammogram. Views obtained: bilateral craniocaudal and bilateral mediolateral oblique. Computer Aided Detection was performed. Mammogram Findings: The present examination has been compared to prior imaging studies performed at [facility] on 12/31/2021 and 01/02/2023. There are scattered areas of fibroglandular density. There is no suspicious abnormality in either breast. There are no significant changes from the prior study. Impression: There is no mammographic evidence of malignancy. Annual screening mammography is recommended. OVERALL FINAL ASSESSMENT: BI-RADS CATEGORY 1: Negative. us Self Screening Mammogram IMG MAMMO PROCEDURES Fi nal Result from Last 3 Months or Most Recently Relevant to Health Maintenance Insurance [facility] MEDICARE ADVANTAGE [employer] MEDICARE ADVANTAGE Care Teams Correctional Maintenance Technician Relationship Specialty Start Date End Date Mary Lebron NP [address] [place] [address] PCP - General Nurse Practitioner 03/08/24
== END 2024-11-17 16:12 | disposition home or self-care (01) ==
PROVIDERS: PCP Nurse Practitioner Adult Health; Visit Provider Nurse Practitioner Adult Health
DX: I65.23 Occlusion and stenosis of bilateral carotid arteries (principal); R09.89 Other specified symptoms and signs involving the circulatory and respiratory systems
CPT/HCPCS: 93880